=== PATIENT | male | born 1975 | race Caucasian/White ===

== ENCOUNTER 2022-02-16 07:15 | Day surgery (SDC) | payer MEDICAID, OTHER ==
[~2022-02-16 07:15] MED LIST: Lactated Ringers 1,000 ML IV SCH; Sodium Chloride 0.9% 10 ML Syringe FLUSH PRN
[2022-02-16] MEDS ORDERED: Lidocaine 2% 5 ML SDV INJECT ONE (07:16)
[2022-02-16] MEDS ORDERED: Propofol 200 MG/20 ML SDV IV ONE (07:16)
== END 2022-02-16 10:41 | disposition home or self-care (01) ==
LOC: FB.SDS 07:15
PROVIDERS: ATTEND Surgery
DX: K29.50 Unspecified chronic gastritis without bleeding (principal); K20.90 Esophagitis, unspecified without bleeding; I10 Essential (primary) hypertension; K21.9 Gastro-esophageal reflux disease without esophagitis; E78.5 Hyperlipidemia, unspecified; Z79.899 Other long term (current) drug therapy
CPT/HCPCS: 00813-QZ; 88305; 88342; J2704; J7120